=== PATIENT | female | born 1980 | race American Indian/Alaskan Native ===

== ENCOUNTER 2018-03-01 14:29 | Emergency (ER) | payer MEDICARE ==
[2018-03-01] MEDS ORDERED: MOTRIN PO ONE (15:19)
[2018-03-01] MEDS ORDERED: LIDOCAINE VISCOUS 2% PO ONE (15:19)
[2018-03-01] MEDS ORDERED: CATAPRES PO ONE (15:20)
--- NOTE | 2018-03-01 15:20 | Emergency Department Report ---
ED ENT HPI - General Chief complaint: Sore Throat Stated complaint: VOMITING Time Seen by Provider: 03/01/18 15:06 Source: EMS Mode of arrival: Ambulatory Limitations: Physical Limitation - History of Present Illness Initial comments: This is a 37-year-old female nontoxic, well nourished in appearance, no acute signs of distress presents to the ED with c/o of sore throat x2 days. Patient describes sore throat as swallowing razer blades. Patient also stated she has sensation as "something stuck in her throat". Patient denies any fever, chills , headache, stiff neck, nausea, vomiting, chest pain, shortness of breath, numbness or tingling. Patient stated started has hoarseness that started last week. Patient denies any allergies. PMH includes HIV and HTN. Patient stated she takes hydrochlorothiazide and Lisinopril. Patient stated she did not take these medications today but does have prescriptions at home. MD complaint: sore throat -: days(s) (2) Location: throat Severity: mild Severity scale (0 -10): 8 Consistency: constant Improves with: none Worsens with: swallowing Associated Symptoms: pain with swallowing, sore throat. denies: fever, cough, gum swelling, toothache, tinnitus, hearing loss, discharge from ear, rhinorrhea - Related Data Previous Rx's Medication Instructions Recorded Last Taken Type Amoxicillin/K Clav Tab [Augmentin 1 tab PO Q12HR #20 tab 03/01/18 Unknown Rx 875 mg] Ibuprofen [Motrin] 600 mg PO Q8H PRN #30 tablet 03/01/18 Unknown Rx Nystas/Diphen/Xyl Visc/Mylanta 15 ml MM Q4H PRN 10 Days ml 03/01/18 Unknown Rx [Magic Mouthwash] Allergies Allergy/AdvReac Type Severity Reaction Status Date / Time No Known Allergies Allergy Unverified 03/01/18 14:49 ED Dental HPI - General Chief complaint: Sore Throat Stated complaint: VOMITING Time Seen by Provider: 03/01/18 15:06 Source: EMS Mode of arrival: Ambulatory Limitations: Physical Limitation - Related Data Previous Rx's Medication Instructions Recorded Last Taken Type Amoxicillin/K Clav Tab [Augmentin 1 tab PO Q12HR #20 tab 03/01/18 Unknown Rx 875 mg] Ibuprofen [Motrin] 600 mg PO Q8H PRN #30 tablet 03/01/18 Unknown Rx Nystas/Diphen/Xyl Visc/Mylanta 15 ml MM Q4H PRN 10 Days ml 03/01/18 Unknown Rx [Magic Mouthwash] Allergies Allergy/AdvReac Type Severity Reaction Status Date / Time No Known Allergies Allergy Unverified 03/01/18 14:49 ED Review of Systems ROS: Stated complaint: VOMITING Other details as noted in HPI Constitutional: denies: chills, fever Eyes: denies: eye pain, eye discharge, vision change ENT: throat pain. denies: ear pain Respiratory: denies: cough, shortness of breath, wheezing Cardiovascular: denies: chest pain, palpitations Endocrine: no symptoms reported Gastrointestinal: denies: abdominal pain, nausea, diarrhea Genitourinary: denies: urgency, dysuria, discharge Musculoskeletal: denies: back pain, joint swelling, arthralgia Skin: denies: rash, lesions Neurological: denies: headache, weakness, paresthesias Psychiatric: denies: anxiety, depression Hematological/Lymphatic: denies: easy bleeding, easy bruising ED Past Medical Hx - Past Medical History Hx Hypertension: Yes Hx HIV: Yes Additional medical history: brain damage x2,neuropathy,myopathy,gout, fibromyalgia,peuomonia,PCP,ecoli in lungs/kidneys,8cm catheter in right lung r/ t protruding main artery, right chest wall infusiport - Surgical History Additional Surgical History: ,infusiport,tubiligation - Social History Smoking Status: Current Every Day Smoker Substance Use Type: None - Medications Home Medications: Home Medications Medication Instructions Recorded Confirmed Last Taken Type Amoxicillin/K Clav Tab [Augmentin 1 tab PO Q12HR #20 tab 03/01/18 Unknown Rx 875 mg] Ibuprofen [Motrin] 600 mg PO Q8H PRN #30 tablet 03/01/18 Unknown Rx Nystas/Diphen/Xyl Visc/Mylanta 15 ml MM Q4H PRN 10 Days ml 03/01/18 Unknown Rx [Magic Mouthwash] ED Physical Exam - General Limitations: Physical Limitation General appearance: alert, in no apparent distress - Head Head exam: Present: atraumatic, normocephalic - Eye Eye exam: Present: normal appearance Pupils: Present: normal accommodation - ENT ENT exam: Present: mucous membranes moist, TM's normal bilaterally, normal external ear exam - Expanded ENT Exam Expanded Ear exam: Present: normal external inspection Mouth exam: Present: normal external inspection, tongue normal. Absent: drooling, trismus, muffled voice, tongue elevation, laceration Teeth exam: Present: normal inspection Throat exam: Positive: tonsillar erythema, tonsillomegaly (2+), other (Uvula midline. No abscess or swelling noted. ). Negative: tonsillar exudate, R peritonsillar mass, L peritonsillar mass - Neck Neck exam: Present: normal inspection, full ROM, lymphadenopathy (bilateral tonsillar). Absent: tenderness, meningismus - Respiratory Respiratory exam: Present: normal lung sounds bilaterally. Absent: respiratory distress, wheezes, rales, rhonchi, stridor, chest wall tenderness, accessory muscle use, decreased breath sounds, prolonged expiratory - Cardiovascular Cardiovascular Exam: Present: regular rate, normal rhythm, normal heart sounds. Absent: irregular rhythm, systolic murmur, diastolic murmur, rubs, gallop - GI/Abdominal GI/Abdominal exam: Present: soft, normal bowel sounds. Absent: distended, tenderness, guarding, rebound, rigid, diminished bowel sounds - Rectal Rectal exam: Present: deferred - Extremities Exam Extremities exam: Present: normal inspection, full ROM, normal capillary refill - Back Exam Back exam: Present: normal inspection, full ROM - Neurological Exam Neurological exam: Present: alert, oriented X3, normal gait - Psychiatric Psychiatric exam: Present: normal affect, normal mood - Skin Skin exam: Present: warm, dry, intact, normal color. Absent: rash ED Course Vital Signs 03/01/18 14:39 Temperature 98.3 F Pulse Rate 95 H Respiratory 20 Rate Blood Pressure 187/109 O2 Sat by Pulse 97 Oximetry - Reevaluation(s) Reevaluation #1: 03/01/18 15:38 Patient is speaking in full sentences with no signs of distress noted. ED Medical Decision Making - Medical Decision Making This is a 37-year-old female that presents with tonsillitis. Patient is stable and was examined by me. Strep test obtained. Xray of neck soft tissue obtained to r/o foreign body and dictated by the radiologist. Patient is notified of the xray report with no questions noted by the patient. Patient received Lidocaine visious and motrin in the ED which patient stated symptoms are improving. Patient recveived Catapres in the Ed and blood pressure decreased prior to discahrge. Patient was instructed to take b/p meds as presceriebd by her PCP. Patient received Augmentin at discharge and was instructed to Follow-up with a primary care doctor in 3-5 days or if symptoms worsen and continue return to emergency room as soon as possible. At time of discharge, the patient does not seem toxic or ill in appearance. No acute signs of distress noted. Patient agrees to discharge treatment plan of care. No further questions noted by the patient. Critical care attestation.: If time is entered above; I have spent that time in minutes in the direct care of this critically ill patient, excluding procedure time. ED Disposition Clinical Impression: Tonsillitis, Hypertension Pharyngitis Qualifiers: Pharyngitis/tonsillitis etiology: unspecified etiology Qualified Code(s): J02.9 - Acute pharyngitis, unspecified Disposition: DC- TO HOME OR SELFCARE Is pt being admited?: No Does the pt Need Aspirin: No Condition: Stable Instructions: Pharyngitis (ED), Tonsillitis (ED), Amoxicillin/Clavulanate Potassium (By mouth), Hypertension (ED) Additional Instructions: Follow-up with a primary care doctor in 3-5 days or if symptoms worsen and continue return to emergency room as soon as possible. Continue taking your blood pressure medications as prescribed by your primary care doctor. Prescriptions: Amoxicillin/K Clav Tab [Augmentin 875 mg] 1 tab PO Q12HR #20 tab Ibuprofen [Motrin] 600 mg PO Q8H PRN #30 tablet PRN Reason: Pain Nystas/Diphen/Xyl Visc/Mylanta [Magic Mouthwash] 15 ml MM Q4H PRN 10 Days ml PRN Reason: Sore Throat Referrals: PRIMARY CARE, [Primary Care Provider] - 3-5 Days CAROLIN WILCOX MD [Staff Physician] - 3-5 Days TARSHA RUIZ MD [Staff Physician] - 3-5 Days [facility] [Outside] - 3-5 Days [facility] [Outside] - 3-5 Days Forms: Work/School Release Form(ED)
--- NOTE | 2018-03-01 15:55 | XRay Report ---
FINAL REPORT EXAM: XR NECK SOFT TISSUE HISTORY: sore throat with foreign body sensation COMPARISON: None. TECHNIQUE: Two views of the soft tissues of the neck FINDINGS: Adenoids and lingual tonsils: Normal. Nasopharynx and oropharynx: Normal. Epiglottis: Normal. Subglottic airway: Normal. Prevertebral soft tissues: Normal. Osseous structures: Normal. IMPRESSION: Normal soft tissues of the neck.
[2018-03-01 16:20] VITALS: BP 133/84
== END 2018-03-01 16:35 | disposition home or self-care (01) ==
LOC: ED 14:29
DX: J03.90 Acute tonsillitis, unspecified (principal); I10 Essential (primary) hypertension; R59.0 Localized enlarged lymph nodes; M79.7 Fibromyalgia; M62.9 Disorder of muscle, unspecified; F17.200 Nicotine dependence, unspecified, uncomplicated; Z98.51 Tubal ligation status
CPT/HCPCS: 70360; 87116; 87430; 99284